=== PATIENT | female | born 1980 | race Caucasian/White ===

== ENCOUNTER 2017-01-03 01:23 | Emergency (ER) | payer BC, OTHER ==
[~2017-01-03] VITALS: Ht 162.6 cm; Wt 63.5 kg
[~2017-01-03 01:23] MED LIST: ALBU8.5H8 IH; AZIT250T PO; D-ME118S12 PO; SUMA25TA PO
--- NOTE | 2017-01-03 02:27 | NUR ---
Patient discharged to home in stable conditon. Written and verbal after care instructions given. Patient verbalizes understanding of instructions.
[2017-01-03 02:31] VITALS: BP 118/77
== END 2017-01-03 02:30 | disposition home or self-care (01) ==
LOC: ER 01:23
DX: R07.89 Other chest pain (principal); J45.909 Unspecified asthma, uncomplicated; G43.909 Migraine, unspecified, not intractable, without status migrainosus
CPT/HCPCS: 36415; 70030-TC; 84703; 93005; A4663

== ENCOUNTER 2017-11-02 00:39 | Emergency (ER) | payer BC, OTHER ==
[~2017-11-02] VITALS: Ht 162.6 cm; Wt 63.5 kg
[2017-11-02] MEDS ORDERED: ESOM20CA PO (00:53)
[2017-11-02] MEDS ORDERED: DEXT10TA7 PO (00:53)
[2017-11-02] MEDS ORDERED: MORPHINE SULFATE 2 MG/1 ML DISP.SYRIN IV ONE (01:15)
[2017-11-02] MEDS ORDERED: ONDANSETRON 4 MG/2 ML VIAL IV ONE (01:15)
[2017-11-02] MEDS ORDERED: IV NORMAL SALINE 1000 ML BAG IV ONE (01:15)
[2017-11-02 01:25] LABS: BASOPHILS # (AUTO) 0.1 K/uL (0.0-8.0); BASOPHILS % (AUTO) 0.5 % (0.0-2.0); EOSINOPHILS # (AUTO) 0.2 K/uL (0.0-0.7); EOSINOPHILS % (AUTO) 2.2 % (0.0-7.0); HEMATOCRIT 32.7 % (31.2-41.9); HEMOGLOBIN 11.3 g/dL (10.9-14.3); LYMPHOCYTES # (AUTO) 2.3 K/uL (20.0-40.0); LYMPHOCYTES % (AUTO) 23.7 % (20.5-51.5); MEAN CORPUSCULAR HEMOGLOBIN 31.5 uug (24.7-32.8); MEAN CORPUSCULAR HGB CONC 35 g/dL (32.3-35.6); MEAN CORPUSCULAR VOLUME 91.4 fL (75.5-95.3); MONOCYTES # (AUTO) 0.6 K/uL (2.0-10.0); MONOCYTES % (AUTO) 6.6 % (0.0-11.0); NEUTROPHILS # (AUTO) 6.4 K/uL (1.8-8.9); PLATELET COUNT (AUTO) 208 K/uL (179-408); RED BLOOD CELL COUNT(AUTO) 3.58 MIL/uL (3.63-4.92); WHITE BLOOD COUNT (AUTO) 9.5 K/uL (3.8-11.8)
[2017-11-02 01:40] LABS: CREATININE 0.7 mg/dL (0.6-1.3)
[2017-11-02] MEDS ORDERED: ONDANSETRON 4 MG/2 ML VIAL ONE (02:01)
[2017-11-02] MEDS ORDERED: MORPHINE SULFATE 4 MG/1 ML DISP.SYRIN ONE (02:01)
--- NOTE | 2017-11-02 02:06 | NUR ---
PT IN BED. PT'S MOTHER AT BEDSIDE. PT IS CALM AND COOPERATIVE. PT HAS BEEN GIVEN ALL ORDERED MEDS. PT REPORTING REDUCED BACK PAIN. VSS. NO SIGNS OF DISTRESS WITNESSED AT THIS TIME.
--- NOTE | 2017-11-02 02:47 | NUR ---
PT ABLE TO AMBULATE TO RESTROOM UNASSISTED WITH STEADY GAIT
[2017-11-02 02:58] LABS: *BILIRUBIN,URIN NEGATIVE (NEGATIVE); *BLOOD, URINE NEGATIVE (NEGATIVE); *CLARITY,URINE CLEAR (CLEAR); *COLOR,URINE YELLOW (YELLOW); *KETONES,URINE NEGATIVE (NEGATIVE); *PROTEIN,URINE NEGATIVE (NEGATIVE); *UROBILINOGEN,URINE 0.2 E.U./dl (NORMAL); LEUKOCYTE ESTERASE ,URINE NEGATIVE (NEGATIVE); NITRITE, URINE NEGATIVE (NEGATIVE); UGLUCOSE NEGATIVE (NEGATIVE)
[2017-11-02 03:10] LABS: *URINE HCG, QUAL NEGATIVE (NEGATIVE)
[2017-11-02 03:14] LABS: BACTERIA,URINE NONE SEEN /HPF (NONE SEEN); RBC,URINE 0-3 /HPF (0-3); SQUAMOUS EPITHELIAL CELL,UR MODERATE /HPF (NONE SEEN); WBC,URINE 0-3 /HPF (0-3)
[2017-11-02 03:26] LABS: BILIRUBIN,DIRECT 0.1 mg/dL (0.0-0.2); BILIRUBIN,TOTAL 0.3 mg/dL (0.2-1.0)
--- NOTE | 2017-11-02 03:33 | NUR ---
MD BRADLEY AT BEDSIDE EXPLAINING MED DIAGNOSIS AN TX OPTIONS
--- NOTE | 2017-11-02 04:10 | NUR ---
Patient discharged to home in stable conditon. Patient reported being without pain prior to discharge. Written and verbal after care instructions given. Patient verbalizes understanding of instructions. Patient able to ambulate unassisted with steady gait. Patient left with all personal belongings.
[2017-11-02 04:19] VITALS: BP 102/68
== END 2017-11-02 04:10 | disposition home or self-care (01) ==
LOC: ER 00:46
DX: K80.50 Calculus of bile duct without cholangitis or cholecystitis without obstruction (principal); K21.9 Gastro-esophageal reflux disease without esophagitis; Z88.2 Allergy status to sulfonamides; Z79.899 Other long term (current) drug therapy; Z79.2 Long term (current) use of antibiotics
CPT/HCPCS: 36415; 71045; 76705; 80048; 80076; 81001; 83690; 84703; 85025; 96374; 96375; 99285; A4663; J2270; J2405; J7030